=== PATIENT | female | born 2000 | race Caucasian/White ===

== ENCOUNTER 2024-01-24 21:04 | Emergency (ER) | payer OTHER, SELFPAY ==
[2024-01-24 21:06] VITALS: BP 123/83
[2024-01-24 21:21] LABS: % Basophils 1.3 % (0-2); % Eosinophils 0.2 % (0-6); % Immature Granulocytes 0.4 % (0-0.5); % Lymphocytes 75.3 % (20.5-51.1); % Monocytes 4.7 % (1.7-9.3); % Neutrophils 18.1 % (42.2-75.2); Absolute Basophils 0.1 10^3/uL (0-0.2); Absolute Lymphocytes 6.4 10^3/uL (1.2-3.4); Absolute Monocytes 0.4 10^3/uL (0.1-0.6); Absolute Neutrophils 1.5 10^3/uL (1.4-6.5); Hematocrit 36.9 % (37.0-47.0); Hemoglobin 12.5 g/dL (12.0-16.0); Mean Corp Hgb Conc. 33.9 g/dL (33.0-37.0); Mean Corpuscular Hgb 27.5 pg (27.0-31.0); Mean Corpuscular Volume 81.3 fL (81.0-99.0); Mean Platelet Volume 10.6 fL (7.4-10.4); Nucleated Red Blood Cells % 0 %; Platelet Count 175 10^3/uL (130-400); Red Blood Cell Count 4.54 10^6/uL (4.20-5.40); Red Cell Dist. Width 12.9 % (11.5-14.5); White Blood Cell Count 8.5 10^3/uL (4.8-10.8)
[2024-01-24 21:33] LABS: HCG, Serum Qualitative Screen Negative
[2024-01-24 21:38] LABS: ALT (SGPT) 252 U/L (0-35); AST (SGOT) 303 U/L (14-36); Alkaline Phosphatase 252 U/L (38-126); Blood Urea Nitrogen 6 mg/dl (7-17); Calcium 8.8 mg/dl (8.4-10.2); Carbon Dioxide 30 mmol/L (22-30); Chloride 101 mmol/L (98-107); Glucose 111 mg/dl (70-99); Lipase 89 U/L (23-300); Potassium 3.5 mmol/L (3.5-5.1); Sodium 136 mmol/L (135-145); Total Bilirubin 0.8 mg/dl (0.2-1.3); Total Protein 7.5 g/dl (6.3-8.2); eGFR > 60.00
[2024-01-24 21:44] LABS: Atypical Lymphocytes 34 %; Band Neutrophils 0 % (0-3); Lymphocytes 35 % (20-51); Monocytes 7 % (2-9); Normal RBC Morphology Yes; Pathologist Reviewed No; Platelets Checked Yes; Segmented Neutrophils 24 % (42-75); Total Cells Counted 100
--- NOTE | 2024-01-24 23:47 | ED.GENMED ---
History of Present Illness
General
Chief Complaint: Abdominal Pain
Source: patient
Exam Limitations: none
Time Seen by Provider: 01/24/24 23:27
Travel History
Have you had any contact with someone who has COVID-19?: No
Do you have any symptoms of coronavirus? Fever > 100 degrees, chills, cough, shortness of breath, sore throat, loss of taste or smell, muscle aches, or headache?: No
History of Present Illness
History of Present Illness:
This is a 23 year old female that comes in with c/o abd pain. States that she has had abd discomfort that comes and goes. Sates that it feels like trapped gas and she has been having trouble having a BM. Sates that she took Pepto on Wednesday and
then TUMS. States that she also tried gas-X and nothing really seemed to help. States that she has been waking up at night with cold sweats. Patient also just got over COVID. Denies any fever, chills, chest pain, SOB, nausea, vomiting, diarrhea,
headache, dizziness, urinary burning.
Past History
Past History
ED Past Medical History: Psychiatric (Anxiety, Depression, ) and Other (PNA, )
ED Past Surgical History: Orthopedic (Left wrist cyst removed) and Urological (Bilateral ureters reimplantation)
Social History
Tobacco: Non-smoker
Alcohol: Occasional
Drug: None
Personal: Single
Living: other (College)
Review of Systems
Review of Systems
All Other Systems: ROS reviewed and negative except as documented in HPI and ROS
Constitutional: Reports no symptoms; Denies fever or chills
EENT: Reports no symptoms
Respiratory: Reports no symptoms; Denies cough or trouble breathing
Cardiac: Reports no symptoms; Denies chest pain
ABD/GI: Reports abdominal pain and constipated; Denies nausea, vomiting or diarrhea
: Reports no symptoms; Denies dysuria, frequency or urgency
Musculoskeletal: Reports no symptoms
Skin: Reports no symptoms
Neurological: Reports no symptoms; Denies dizzy or headache
Psychiatric: Reports no symptoms
Phy Exam
General Physical Exam
General Presentation: no apparent distress
General age: appears stated age
General Skin: warm and dry
General Habitus: normal
General Mental: alert
General Hydration: appears well hydrated
ENT Exam
ENT Exam: TM's normal, pharynx normal and neck supple
Eye Exam
Eye Exam: EOMI
Cardiovascular Exam
Cardiovascular Exam: regular rate/rhythm, no edema, no murmur and normal peripheral pulses
Pulmonary Exam
Pulmonary Exam: lungs clear, no respiratory distress, no rales, chest non tender, no crackles, no rhonchi, no wheezing and no cough
Gastrointestinal Exam
Gastrointestinal Exam: normal bowel sounds, soft, no organomegaly, no pulsatile mass, non distended and tender (Slight epigastric tenderness with palpation)
Musculoskeletal Exam
Musculoskeletal Exam: full ROM and no edema
Skin Exam
Skin Exam: normal color, warm/dry, no rash and no petechia
Psychiatric Exam
Psychiatric Exam: normal mood/affect
Course
Orders/Labs/Results
Orders:
Orders
01/24/24 21:11
CR Abdomen - 1 View Urgent
Comment:
Reason For Exam: constipation
01/24/24 21:13
Test Result ONCE
01/24/24 21:15
Complete Blood Count/With Diff Urgent
Comprehensive Metabolic Panel Urgent
HCG, Serum Qualitative Screen Urgent
Lipase Urgent
Manual Differential Urgent
Abnormal Lab Results
01/24/24
21:15
Hct 36.9 L %
(37.0-47.0)
MPV 10.6 H fL
(7.4-10.4)
Absolute Lymphs (auto) 6.4 H 10^3/uL
(1.2-3.4)
Neutrophils % 18.1 L %
(42.2-75.2)
Lymphocytes % 75.3 H %
(20.5-51.1)
Segmented Neutrophils 24 L %
(42-75)
BUN 6 L mg/dl
(7-17)
Glucose 111 H mg/dl
(70-99)
AST 303 H U/L
(14-36)
ALT 252 H U/L
(0-35)
Alkaline Phosphatase 252 H U/L
(38-126)
01/24/24 21:15
01/24/24 21:15
Glucose nonfasting. AST/ALT elevation (patient just getting over COVID), Alk phos elevation, Lipase normal at 89, HCG negative.
Vital Signs
Initial and Last Documented VS:
Initial Vital Signs
Temp Pulse Resp BP Pulse Ox
99.9 F 105 20 123/83 98
01/24/24 21:06 01/24/24 21:06 01/24/24 21:06 01/24/24 21:06 01/24/24 21:06
Last Documented Vital Signs
Temp Pulse Resp BP Pulse Ox
99.9 F 105 20 123/83 98
01/24/24 21:06 01/24/24 21:06 01/24/24 21:06 01/24/24 21:06 01/24/24 21:06
MDM/Problems Addressed
Differential Diagnosis Includes:
Constipation, Bowel obstruction
MDM/Problems Addressed:
This is a 23 year old female that comes in with c/o abd pain that comes and goes. States that she has been having trouble having a BM.
Will get labs and X-ray.
Explained to patient that her Liver enzymes are elevated as this goes along with COVID. X-ray shows constipation. Will give patient a bottle of Magnesium Citrate and encouraged patient to increase her water intake to 8-8oz glasses daily. Patient to
return with any concerns.
Chronic conditions affecting care:
NA
Acute Exacerbation and/or Progression of Chronic Illness:
NA
*Radiology
Radiology exam reviewed: radiology read reviewed (Abd- Nonspecific bowel gas pattern without signs of obstruction. Mild diffuse colonic stool burden may reflect constipation. )
*Pulse Oximetry
Patient hypoxic: no
*EKG
Interpreted by ED Provider?: NA
Rate: EKG- N/A
*Theatrical Variety Agent Interpretation
Rate: Theatrical Variety Agent- N/A
*Critical Care Note
Total Time (30-74mins, 75-104mins- exclusive of procedures): Not Applicable
ED Attending Note
-
Portions of this chart may have been created with voice recognition software.� Occasional wrong word or��sound alike� substitutions may have occurred due to the inherent limitations of voice recognition software.
Discharge Plan
Departure
Patient Disposition: Home (Routine Discharge)
Date of Disposition: 01/24/24
Time of Disposition: 23:54
Patient with high blood pressure during this ER visit?: No
Condition: Good
Covid-19: Not Applicable
Discharge Problem:
Constipation
Instructions: Constipation, Adult (DC)
Prescriptions:
No Action
ondansetron 4 MG tablet,disintegrating
4 mg PO TIDPRN PRN (Reason: nausea/vomiting) Qty: 10 0RF
Activity Restrictions/Additional Instructions:
As discussed, your blood work shows that your liver enzymes are elevated. This goes along with COVID. Your x-ray shows that you are constipated. You have been given a bottle of Magnesium Citrate. Please drink the entire bottle. This will work from
the top to push things out. Please increase your water intake to 8-8oz glasses daily. Follow up with the family doctor as needed. IF YOU HAVE INCREASED OR CHANGING ABDOMINAL PAIN, OR YOU HAVE ANY OTHER CONCERNS PLEASE RETURN TO THE EMERGENCY ROOM.
Interventions
Interventions:
*Risk Screen - Suicide Last Done: 01/24/24 21:06
*General Assessment Last Done: 01/24/24 21:06
[2024-01-25] MEDS: CITROMA 300 ML PO ×4 (00:03)
== END 2024-01-25 00:09 | disposition home or self-care (01) ==
LOC: EMR 21:04
PROVIDERS: Emergency Medicine; EMERGENCY PHYSICIAN Emergency Medicine; FAMILY PHYSICIAN Pediatrics
DX: K59.00 Constipation, unspecified (principal); F41.8 Other specified anxiety disorders
CPT/HCPCS: 99283; 74018; 80053; 83690; 84703; 85025

== ENCOUNTER → 2025-06-05 14:08 | Outpatient (REF) | payer OTHER, SELFPAY | LOC: HWRAD 14:08 | PROVIDERS: ATTENDING PHYSICIAN Physician Assistant Medical | DX: R42 Dizziness and giddiness (principal); R26.89 Other abnormalities of gait and mobility; F07.81 Postconcussional syndrome | CPT/HCPCS: 70450 ==

== ENCOUNTER → 2025-07-26 12:55 | Outpatient (REF) | payer OTHER, SELFPAY | LOC: HWRAD 12:55 | PROVIDERS: ATTENDING PHYSICIAN Physician Assistant; FAMILY PHYSICIAN Physician Assistant Medical | DX: N39.0 Urinary tract infection, site not specified (principal) | CPT/HCPCS: 76770 ==